=== PATIENT | female | born 1975 | race Caucasian/White ===

== ENCOUNTER 2018-01-16 20:35 | Emergency (ER) | payer OTHER ==
[~2018-01-16 20:35] MED LIST: KET10 PO; LOR5/325 PO; SULF-198 PO
--- NOTE | 2018-01-16 20:38 | ER Report ---
History and Physical Time Seen By MD: 20:37 HPI/ROS CHIEF COMPLAINT: Right upper quadrant abdominal pain HISTORY OF PRESENT ILLNESS: 42-year-old female notes that she was severely nauseated this morning. She has not vomited. She's developed right upper quadrant pain, which is gotten progressively worse until this evening. She notes no radiation. She notes no exacerbating or alleviating factors. She notes no change in bowel habits. She notes no dysuria, frequency or hematuria. He is status post 2. Patient denies fever or chills. Patient reports her gallbladder still present. REVIEW OF SYSTEMS: Respiratory: No cough, no dyspnea. Cardiovascular: No chest pain, no palpitations. Gastrointestinal: As above Musculoskeletal: No back pain. Allergies: Coded Allergies: propoxyphene (Verified Allergy, Severe, CLOSES THROAT, 01/16/18) Home Meds Active Scripts Ondansetron (ZOFRAN ODT) 4 Mg Tab.rapdis, 4 MG PO every 6 hours PRN for NAUSEA/VOMITING, #10 TAB TAKE 1 TABLET BY MOUTH EVERY 12 HOURS Prov:MELINA KYLE DO 01/16/18 Hydrocodone Bit/Acetaminophen (NORCO 5-325 TABLET) 1 Each Tablet, 1 EACH PO Q4H PRN for PAIN, #10 TAB Prov:MELINA KYLE DO 01/16/18 Discontinued Scripts Ketorolac Tromethamine (KETOROLAC TROMETHAMINE) 10 Mg Tab, 10 MG PO Q6H PRN for PAIN, #12 TAB 0 Refills Prov:DACIA PAUL MD 12/07/15 Hydrocodone Bit/Acetaminophen (HYDROCODON-ACETAMINOPHEN 5-325) 1 Each Tablet, 1 EACH PO Q4-6H PRN for PAIN, #12 TAB 0 Refills TAKE ONE TABLET BY MOUTH EVERY 4-6 HOURS NEEDED FOR PAIN Prov:DACIA PAUL MD 12/07/15 Sulfamethoxazole/Trimet 800-160 Mg Tab (BACTRIM DS TABLET) 1 Each Tablet, 1 TAB PO Q12H, #14 MG 0 Refills TAKE ONE TABLET BY MOUTH EVERY TWELVE HOURS Prov:DACIA PAUL MD 12/07/15 Reviewed Nurses Notes: Yes Old Medical Records Reviewed: Yes Hx Smoking: Yes Smoking Status: Former Smoker Hx Substance Use Disorder: No Hx Alcohol Use: No Constitutional Vital Sign - Last 24 Hours 10/12/2601/16/18 01/16/18 01/16/18 20:40 21:00 21:05 21:20 Temp 98.0 Pulse 82 71 68 Resp 20 B/P (MAP) 138/94 116/81 (93) Pulse Ox 92 92 94 O2 Delivery Room Air 01/16/18 01/16/18 01/16/18 21:25 21:30 21:35 Pulse 71 77 B/P (MAP) 109/66 (80) Pulse Ox 91 91 Physical Exam Vital signs stable, afebrile, pulse ox normal General Appearance: The patient is alert, has no immediate need for airway protection and no current signs of toxicity. Mild distress Eyes: Pupils equal and round no injection. Anicteric sclera Respiratory: Chest is non tender, lungs are clear to auscultation. Cardiac: regular rate and rhythm Gastrointestinal: Abdomen is soft, mild right upper quadrant tenderness, no Lipscomb sign, no masses, bowel sounds normal. Musculoskeletal: Neck: Neck is supple and non tender. Extremities have full range of motion and are non tender. Skin: No rashes or lesions. DIFFERENTIAL DIAGNOSIS: After history and physical exam differential diagnosis was considered for abdominal pain including but not limited to appendicitis, cholecystitis, gastritis and urinary tract infection. Medical Decision Making Data Points Result Diagram: 01/16/18205201/16/182052 Laboratory Hematology Test 01/16/18 20:40 01/16/18 20:53 Urine Color Straw Urine Clarity Clear Urine pH 6.0 pH (4.8-9.5) Urine Specific [place] 1.010 Urine Protein Negative mg/dL (NEGATIVE) Urine Glucose (UA) Negative mg/dL (NEGATIVE) Urine Ketones Negative mg/dL (NEGATIVE) Urine Blood Negative (NEGATIVE) Urine Nitrite Negative (NEGATIVE) Urine Bilirubin Negative (NEGATIVE) Urine Urobilinogen Negative mg/dL (0.2-1.9) Urine Leukocyte Esterase Negative (NEGATIVE) Urine RBC 1 /HPF (0-2/HPF) Urine WBC 1 /HPF (0-5/HPF) Urine Squamous Epithelial Cells Many /LPF (</=FEW) Urine Bacteria Few /HPF (NONE-FEW) Urine Mucus None /HPF (NONE-FEW) Red Blood Count 4.51 M/uL (4.17-5.56) Mean Corpuscular Volume 89.3 fL (80.0-96.0) Mean Corpuscular Hemoglobin 30.4 pg (26.0-33.0) Mean Corpuscular Hemoglobin Concent 34.1 g/dL (32.0-36.0) Red Cell Distribution Width 14.3 % (11.5-14.5) Mean Platelet Volume 8.8 fL (7.2-11.1) Neutrophils (%) (Auto) 49.6 % (39.4-72.5) Lymphocytes (%) (Auto) 39.8 % (17.6-49.6) Monocytes (%) (Auto) 7.6 % (4.1-12.4) Eosinophils (%) (Auto) 2.2 % (0.4-6.7) Basophils (%) (Auto) 0.8 % (0.3-1.4) Nucleated RBC Relative Count (auto) 0.1 /100WBC Neutrophils # (Auto) 5.9 K/uL (2.0-7.4) Lymphocytes # (Auto) 4.8 K/uL (1.3-3.6) Monocytes # (Auto) 0.9 K/uL (0.3-1.0) Eosinophils # (Auto) 0.3 K/uL (0.0-0.5) Basophils # (Auto) 0.1 K/uL (0.0-0.1) Nucleated RBC Absolute Count (auto) 0.01 K/uL Urine HCG, Qualitative Negative (NEGATIVE) Sodium Level 139 mmol/L (137-145) Potassium Level 3.7 mmol/L (3.5-5.0) Chloride Level 102 mmol/L (98-107) Carbon Dioxide Level 26 mmol/L (22-31) Blood Urea Nitrogen 11 mg/dl (7-18) Creatinine 0.70 mg/dl (0.52-1.04) Glomerular Filtration Rate Calc > 60.0 Random Glucose 111 mg/dl (75-110) Calcium Level 9.0 mg/dl (8.4-10.2) Total Bilirubin 0.3 mg/dl (0.2-1.3) Aspartate Amino Transf (AST/SGOT) 19 U/L (0-35) Alanine Aminotransferase (ALT/SGPT) 38 U/L (0-56) Alkaline Phosphatase 47 U/L (0-126) Total Protein 7.6 g/dl (6.3-8.2) Albumin 4.0 g/dl (3.5-5.0) Amylase Level 52 U/L (0-110) Lipase 150 U/L (23-300) Chemistry Test 01/16/18 20:40 01/16/18 20:53 Urine Color Straw Urine Clarity Clear Urine pH 6.0 pH (4.8-9.5) Urine Specific [place] 1.010 Urine Protein Negative mg/dL (NEGATIVE) Urine Glucose (UA) Negative mg/dL (NEGATIVE) Urine Ketones Negative mg/dL (NEGATIVE) Urine Blood Negative (NEGATIVE) Urine Nitrite Negative (NEGATIVE) Urine Bilirubin Negative (NEGATIVE) Urine Urobilinogen Negative mg/dL (0.2-1.9) Urine Leukocyte Esterase Negative (NEGATIVE) Urine RBC 1 /HPF (0-2/HPF) Urine WBC 1 /HPF (0-5/HPF) Urine Squamous Epithelial Cells Many /LPF (</=FEW) Urine Bacteria Few /HPF (NONE-FEW) Urine Mucus None /HPF (NONE-FEW) White Blood Count 11.9 k/uL (4.5-11.0) Red Blood Count 4.51 M/uL (4.17-5.56) Hemoglobin 13.7 g/dL (12.0-16.0) Hematocrit 40.2 % (34.0-47.0) Mean Corpuscular Volume 89.3 fL (80.0-96.0) Mean Corpuscular Hemoglobin 30.4 pg (26.0-33.0) Mean Corpuscular Hemoglobin Concent 34.1 g/dL (32.0-36.0) Red Cell Distribution Width 14.3 % (11.5-14.5) Platelet Count 308 K/uL (150-450) Mean Platelet Volume 8.8 fL (7.2-11.1) Neutrophils (%) (Auto) 49.6 % (39.4-72.5) Lymphocytes (%) (Auto) 39.8 % (17.6-49.6) Monocytes (%) (Auto) 7.6 % (4.1-12.4) Eosinophils (%) (Auto) 2.2 % (0.4-6.7) Basophils (%) (Auto) 0.8 % (0.3-1.4) Nucleated RBC Relative Count (auto) 0.1 /100WBC Neutrophils # (Auto) 5.9 K/uL (2.0-7.4) Lymphocytes # (Auto) 4.8 K/uL (1.3-3.6) Monocytes # (Auto) 0.9 K/uL (0.3-1.0) Eosinophils # (Auto) 0.3 K/uL (0.0-0.5) Basophils # (Auto) 0.1 K/uL (0.0-0.1) Nucleated RBC Absolute Count (auto) 0.01 K/uL Urine HCG, Qualitative Negative (NEGATIVE) Glomerular Filtration Rate Calc > 60.0 Calcium Level 9.0 mg/dl (8.4-10.2) Total Bilirubin 0.3 mg/dl (0.2-1.3) Aspartate Amino Transf (AST/SGOT) 19 U/L (0-35) Alanine Aminotransferase (ALT/SGPT) 38 U/L (0-56) Alkaline Phosphatase 47 U/L (0-126) Total Protein 7.6 g/dl (6.3-8.2) Albumin 4.0 g/dl (3.5-5.0) Amylase Level 52 U/L (0-110) Lipase 150 U/L (23-300) Urinalysis Test 01/16/18 20:40 01/16/18 20:53 Urine Color Straw Urine Clarity Clear Urine pH 6.0 pH (4.8-9.5) Urine Specific [place] 1.010 Urine Protein Negative mg/dL (NEGATIVE) Urine Glucose (UA) Negative mg/dL (NEGATIVE) Urine Ketones Negative mg/dL (NEGATIVE) Urine Blood Negative (NEGATIVE) Urine Nitrite Negative (NEGATIVE) Urine Bilirubin Negative (NEGATIVE) Urine Urobilinogen Negative mg/dL (0.2-1.9) Urine Leukocyte Esterase Negative (NEGATIVE) Urine RBC 1 /HPF (0-2/HPF) Urine WBC 1 /HPF (0-5/HPF) Urine Squamous Epithelial Cells Many /LPF (</=FEW) Urine Bacteria Few /HPF (NONE-FEW) Urine Mucus None /HPF (NONE-FEW) Urine HCG, Qualitative Negative (NEGATIVE) ED Course/Re-evaluation Clinical Indication for ER IV: IV Access ED Course Patient was admitted to an examination room. H&P was done. The differential diagnoses was considered. Patient with severe nausea but no vomiting. She has an intact gallbladder. She is status post 2. Patient notes no exacerbation with food. She has no Lipscomb sign and clinical examination. Her diagnostic laboratory studies are unremarkable except for a mildly elevated white blood cell count. There is mild elevation of blood glucose. Patient could be prediabetic. Likely its elevated secondary to distress of the illness and pain. Patient's discharged home, advised clear liquid diet for 24-48 hours. She is given a prescription for hydrocodone and Zofran. Follow-up with primary care if unimproved in 2-5 days. Decision to Disposition Date: Jan 16, 2018 Decision to Disposition Time: 21:23 Depart Departure Latest Vital Signs Vital Signs Date Time Temp Pulse Resp B/P (MAP) Pulse Ox O2 Delivery O2 Flow Rate FiO2 01/16/18 21:35 77 91 01/16/18 21:30 109/66 (80) 01/16/18 20:40 98.0 20 Room Air Impression: Primary Impression: Right upper quadrant abdominal pain Condition: Improved Disposition: HOME OR SELF-CARE Referrals: SHERYL ANGULO MD (PCP) NISREEN MORRIS MD, FARRUKH MD New Scripts Ondansetron (ZOFRAN ODT) 4 Mg Tab.rapdis 4 MG PO every 6 hours PRN for NAUSEA/VOMITING, #10 TAB TAKE 1 TABLET BY MOUTH EVERY 12 HOURS Prov: MELINA KYLE DO 01/16/18 Hydrocodone Bit/Acetaminophen (NORCO 5-325 TABLET) 1 Each Tablet 1 EACH PO Q4H PRN for PAIN, #10 TAB Prov: MELINA KYLE DO 01/16/18 Patient Instructions: Abdominal Pain (ED), Clear Liquid Diet (ED) Additional Instructions: Follow clear liquid diet for 24-48 hours Follow-up with primary care doctor Dr Morris if unimproved in 2-5 days MELINA KYLE DO Jan 16, 2018 20:38
[2018-01-16] MEDS ORDERED: ONDANSETRON 4 MG/2 ML VIAL IVP ONE (20:50)
[2018-01-16] MEDS ORDERED: fentaNYL CITR 100 MCG/2 ML AMP IVP ONE (20:50)
[2018-01-16 21:12] LABS: PLATELET COUNT, AUTOMATED 308 K/uL (150-450)
[2018-01-16] MEDS ORDERED: ONDANSETRON 4 MG ODT TH SL ONE (21:25)
[2018-01-16] MEDS ORDERED: ONDA4TAB PO (21:25)
[2018-01-16] MEDS ORDERED: HYDR-4309 PO (21:25)
[2018-01-16] MEDS ORDERED: ACET/HYDROC 5/325MG TH ER ONLY 2 TAB/BOTTLE PO ONE (21:25)
[2018-01-16 21:30] VITALS: BP 109/66
== END 2018-01-16 21:43 | disposition home or self-care (01) ==
LOC: ER 20:54
DX: R10.11 Right upper quadrant pain (principal)
CPT/HCPCS: 81001; 81025; 82150; 83690; 85025; 96374; 96375; 99284; J2405; J3010; S0119; 82040; 82247; 82310; 82374; 82435; 82565; 82947; 84075; 84132; 84155; 84295; 84450; 84460; 84520

== ENCOUNTER → 2018-05-11 | Outpatient (CLI) | payer OTHER ==
[~2018-05-11] MED LIST changes: +HYDR-653 PO; +ONDA4TAB PO
--- NOTE | 2018-05-11 09:38 | RADIOLOGY IMAGING REPORT ---
FACILITY: [facility] PATIENT NAME: Shaunna Tovar : 1975 MR: [id number] V: [id number] EXAM DATE: ORDERING PHYSICIAN: SENIA DEY TECHNOLOGIST: Location: [facility] Patient: Shaunna Tovar : 1975 Visit/Account:[id number] Date of Sevice: 05/11/2018 GALLBLADDER HISTORY: Right upper quadrant pain COMPARISON: CT abdomen and pelvis December 07, 2015 FINDINGS: Gallbladder: Unremarkable; no stones or sludge. Liver: Increased echogenicity throughout the liver can be seen with fatty infiltration or other infil trative process Common duct: Normal, 4.9 mm diameter. Pancreas: Partially obscured by bowel, visualized aspects unremarkable. Right kidney: Right kidney appears unremarkable measuring 10.6 cm in length Upper abdominal aorta and IVC: Patent. Ascites: None visualized. IMPRESSION: Increased echogenicity throughout liver which can be seen with fatty infiltration or other infiltrati ve process Report Dictated By: Nazia Cronin MD at 05/11/2018 9:18 AM Report E-Signed By: Nazia Cronin MD at 05/11/2018 9:33 AM WSN:[id number]
== END ==
LOC: US 00:33
PROVIDERS: ATTEND Physician Assistant
DX: K76.0 Fatty (change of) liver, not elsewhere classified (principal)
CPT/HCPCS: 76705